=== PATIENT | female | born 1995 | race Caucasian/White ===

== ENCOUNTER 2017-09-09 15:05 | Emergency (ER) | payer BC ==
[2017-09-09 15:20] VITALS: O2SAT 99
--- NOTE | 2017-09-09 16:27 | EDPHY ---
H & P Time Seen by Provider: 09/09/17 15:47 HPI/ROS: CHIEF COMPLAINT: Scalp laceration HISTORY OF PRESENT ILLNESS: 22-year-old female presents to the emergency department with laceration to the scalp. The patient states that she was sitting on the shoulder of her friend and he subsequently fell and she fell and hit her head. She did not lose consciousness. She denies a headache. She denies neck or back pain. Denies chest pain or difficulty breathing. Denies injury to her upper or lower extremities. She complains of pain at the site of the laceration. Denies any other headache. No visual changes. The incident happened just prior to arrival. Her tetanus shot is current. REVIEW OF SYSTEMS: Constitutional: No fever, no chills. Eyes: No double or blurry vision. ENT: No sore throat. Respiratory: No cough, no shortness of breath. Cardiac: No chest pain. Gastrointestinal: No abdominal pain, vomiting or diarrhea. Genitourinary: No dysuria. Musculoskeletal: No neck or back pain. Skin: Scalp laceration. No rashes. Neurological: No headache. Past Medical/Surgical History: Negative Social History: [employer] student Smoking Status: Never smoked Physical Exam: General Appearance: Alert, no distress. Mentating normally and answering questions appropriately. Friend at bedside. Eyes: Pupils equal and round. Extraocular motions are all intact. ENT: Mouth: Mucous membranes moist. Respiratory: No wheezing, rhonchi, or rales, lungs are clear to auscultation. Cardiovascular: Regular rate and rhythm. Gastrointestinal: Abdomen is soft and nontender, no masses, no rebound or guarding, bowel sounds normal. Neurological: Alert and oriented x 3, cranial nerves II through XII grossly intact Skin: 3 cm right posterior parietal scalp laceration. No active bleeding noted. No evidence of depressed skull fracture. Warm and dry, no rashes. Musculoskeletal: Nontender to palpate along the cervical, thoracic or lumbar spine. Neck is supple. Extremities: Full range of motion and no peripheral edema. Psychiatric: Patient is oriented X 3, there is no agitation. Constitutional: Initial Vital Signs Temperature (C) 36.6 C 09/09/17 15:18 Heart Rate 70 09/09/17 15:18 Respiratory Rate 20 09/09/17 15:18 Blood Pressure 110/57 L 09/09/17 15:18 O2 Sat (%) 99 11/11/17 15:18 O2 Delivery Mode Room Air Allergies/Adverse Reactions: No Known Allergies Allergy (Unverified 09/09/17 15:18) Home Medications: Medication Instructions Recorded NK [No Known Home Meds] 09/09/17 Medical Decision Making Procedures: Laceration repair. Verbal consent was obtained from the patient. The 3 cm laceration on the right posterior parietal scalp was anesthetized using 1% lidocaine with epinephrine. The wound was irrigated with saline, draped and explored to its base with a gloved finger. There were no deep structures involved. The wound was repaired with 9 marlen. The wound repair was complex. The procedure was performed by myself. ED Course/Re-evaluation: 22-year-old female presents to the emergency department with scalp laceration. The wound was repaired, see procedure note. I discussed the pros and cons of CT imaging of her brain including radiation exposure and the patient declined CT scan. The patient had no loss of consciousness. Her friend is at bedside will watch her closely. She will bring her back to the emergency department she develops headache, vomiting, altered mental status, or any other concerns. Differential Diagnosis: Head injury including but not limited to concussion, skull fracture, intraparenchymal contusion, subarachnoid, subdural and epidural hematoma. Departure - Departure Disposition: Home, Routine, Self-Care Clinical Impression: Scalp laceration Qualifiers: Encounter type: initial encounter Qualified Code(s): S01.01XA - Laceration without foreign body of scalp, initial encounter Head injury Qualifiers: Encounter type: initial encounter Qualified Code(s): S09.90XA - Unspecified injury of head, initial encounter Condition: Good Instructions: Care For Your Stitches (ED), Laceration (ED), Acute Wounds (ED) Additional Instructions: Wound Care Follow-Up: Removal of sutures in 7 days. Suture removal is complimentary in uncomplicated cases. Infection or abnormal findings would require reevaluation by the MD. In that case, you may be billed. Return if you developed worsening headache, vomiting, altered mental status, or if you feel worse in any way. Avoid any activity that might put you at risk for another head injury for at least 1 week. You should have your friends wake you up once tonight to ask you a few questions and check her mentation. Referrals: [facility] [Clinic] - As per Instructions
[2017-09-09 16:41] VITALS: BP 111/59; PULSE 73; RESP 16; TEMP 97.7
== END 2017-09-09 16:40 | disposition home or self-care (01) ==
PROC: 0HQ0XZZ Repair Scalp Skin, External Approach (ICD-10-PCS; principal; 2017-09-09)
DX: S01.01XA Laceration without foreign body of scalp, initial encounter (principal); W01.198A Fall on same level from slipping, tripping and stumbling with subsequent striking against other object, initial encounter